=== PATIENT | female | born 1985 | race Hispanic/Latino ===

== ENCOUNTER 2019-01-04 09:00 | Outpatient (CLI) | payer BC ==
--- NOTE | 2019-01-04 11:06 | MRI ---
MRI LUMBAR SPINE WITHOUT CONTRAST: INDICATIONS: History of low back pain radiating to right leg. COMPARISON: 09/01/2016 FINDINGS: There is mild disk degenerative disease at L5-S1, which appears stable. No central canal or neural f oraminal narrowing is evident. L4-L5: There is no appreciable central canal or neural foraminal narrowing. There is mild left face t joint osteoarthritic change, which is stable. L3-L4: There is mild left facet joint degenerative change but no appreciable central canal or neural foraminal narrowing. L2-L3: There is no appreciable central canal or neural foraminal narrowing. L1-L2: There is no appreciable central canal or neural foraminal narrowing. T12-L1: There is no appreciable central canal or neural foraminal narrowing. IMPRESSION: Stable mild disk degenerative disease at L5-S1. POS: CET
== END 2019-01-04 09:01 | disposition home or self-care (01) ==
LOC: SCSMRI 09:00
PROVIDERS: ATTEND Chiropractor
DX: M54.41 Lumbago with sciatica, right side (principal); M47.817 Spondylosis without myelopathy or radiculopathy, lumbosacral region
CPT/HCPCS: 72148

== ENCOUNTER 2019-04-05 07:52 | Emergency (ER) | payer BC, OTHER ==
[2019-04-05] MEDS ORDERED: Metoclopramide HCl 10 MG/2 ML VIAL ONE (08:23)
[2019-04-05] MEDS ORDERED: Ketorolac Tromethamine 30 MG/ML VIAL ONE (08:23)
[2019-04-05] MEDS ORDERED: methylPREDNISolone Sod Succ/PF 125 MG/2 ML VIAL ONE (08:23)
[2019-04-05] MEDS ORDERED: diphenhydrAMINE 50 MG/ML VIAL ONE (08:23)
[2019-04-05 08:47] LABS: Hemoglobin 15.2 g/dL (12.0-16.0); Mean Corpuscular HGB CONC 32.8 g/dL (32.0-36.0); Mean Corpuscular Hemoglobin 28.9 pg (27.0-31.0); Mean Platelet Volume 7.1 fL (7.4-10.4); Platelet Count 409 thou/uL (130-400); RBC Distribution Width 11.9 % (11.5-14.5); Red Blood Cell (RBC) Count 5.25 mill/uL (4.20-5.40); White Blood Cell (WBC) Count 11.7 thou/uL (4.8-10.8)
[2019-04-05 08:55] LABS: ALT (SGPT) 17 U/L (8-55); AST (SGOT) 15 U/L (5-34); Albumin 4.1 g/dL (3.5-5.0); Alkaline Phosphatase 83 U/L (40-150); Anion Gap 11 mmol/L (10-20); BUN (Urea Nitrogen) 10 mg/dL (7.0-18.7); Bilirubin, Total 0.7 mg/dL (0.2-1.2); Calc. Creatinine Clearance 0 mL/min (70-130); Calcium 9.2 mg/dL (7.8-10.44); Carbon Dioxide 25 mmol/L (22-29); Chloride 105 mmol/L (98-107); Estimated GFR-MDRD 76; Globulin 3.5 g/dL (2.4-3.5); Glucose 116 mg/dL (70-105); Potassium 4.3 mmol/L (3.5-5.1); Protein, Total 7.6 g/dL (6.0-8.3); Sodium 137 mmol/L (136-145)
[2019-04-05 08:59] LABS: Lymphocytes 25 % (21-51); MDiff Complete? YES; Monocytes 1 % (0-10); Neutrophil 74 % (42-75); Platelet Morphology Comment Appears Increased
== END 2019-04-05 10:04 | disposition home or self-care (01) ==
LOC: SCSER 07:52
DX: R51 Headache (principal)
CPT/HCPCS: 36415; 80053; 85025; 96365; 96366; 96375; J1200; J1885; J2765; J2930

== ENCOUNTER 2019-04-10 15:21 | Emergency (ER) | payer OTHER ==
[~2019-04-10 15:21] MED LIST: Iopamidol 370 76% 100 ML VIAL ONE
[2019-04-10] MEDS ORDERED: Morphine 4 MG/ML VIAL ONE (16:30)
[2019-04-10] MEDS ORDERED: Promethazine HCl 25 MG/ML VIAL ONE (16:31)
--- NOTE | 2019-04-10 17:22 | CT ---
CT angiogram head: 04/10/2019 COMPARISON: None HISTORY: Headache for 6 days TECHNIQUE: Axial CT imaging through the head without contrast. Then, axial CT imaging at 1.5 mm inter vals obtained with IV contrast using a CT angiogram protocol. Coronal and sagittal 3-D reformatted imaging obtained. FINDINGS: Noncontrast enhanced head CT demonstrates no intracranial hemorrhage, midline shift, mass e ffect, or ventricular enlargement. Visualized paranasal sinuses and mastoid air cells are well aerated. Distal vertebral arteries are patent. The basilar artery and its branches appear patent. No saccular aneurysm, high-grade stenosis, or vascular occlusion is seen involving the posterior circulation. The imaged distal extracranial internal carotid artery is patent bilaterally. The internal carotid artery bifurcation, the M1 segment, the MCA bifurcation, the distal MCA branches , and the distal FRANCES branches appear unremarkable. No saccular aneurysm, high-grade stenosis, or vascular occlusion is appreciated involving the anterior circulation. Region of the anterior communic ating artery appears unremarkable. No acute osseous abnormality is appreciated. IMPRESSION: Unremarkable CT angiogram of the head.
[2019-04-10] MEDS ORDERED: Prochlorperazine 10 MG/2 ML VIAL ONE (18:01)
[2019-04-10] MEDS ORDERED: diphenhydrAMINE 50 MG/ML VIAL ONE (18:02)
[2019-04-10] MEDS ORDERED: Ketorolac Tromethamine 30 MG/ML VIAL ONE (18:02)
== END 2019-04-10 18:45 | disposition home or self-care (01) ==
LOC: SCSER 15:21
DX: G43.909 Migraine, unspecified, not intractable, without status migrainosus (principal); Z79.899 Other long term (current) drug therapy
CPT/HCPCS: 70496; 96365; 96366; 96375; J0780; J1200; J1885; J2270; J2550; Q9967